=== PATIENT | male | born 1980 | race Caucasian/White ===

== ENCOUNTER 2021-12-17 15:38 | Emergency (ER) | payer BC ==
[~2021-12-17] VITALS: Ht 170.2 cm; Wt 75.0 kg
[2021-12-17 15:46] VITALS: BP 142/93
[2021-12-17] MEDS ORDERED: IBUPROFEN 600MG TABLET PO STA (15:48)
[2021-12-17] MEDS ORDERED: BACITRACIN ZINC OINT UDPKT TOP ONE (16:00)
[2021-12-17] MEDS ORDERED: LIDOCAINE HCL/PF 1% 10 MG/ML 5ML VIAL INFIL ONE (16:00)
[2021-12-17] MEDS ORDERED: LIDOCAINE HCL 1% 20ML VIAL (Pyxis) INJ INFIL NR (16:33)
== END 2021-12-18 00:15 | disposition home or self-care (01) ==
LOC: ER 15:38
DX: S01.511A Laceration without foreign body of lip, initial encounter (principal); X58.XXXA Exposure to other specified factors, initial encounter; Y93.89 Activity, other specified; Y92.89 Other specified places as the place of occurrence of the external cause; Y99.8 Other external cause status
CPT/HCPCS: 40650; 99284; J3490

== ENCOUNTER 2025-05-26 15:51 | Emergency (ER) | payer OTHER, BC ==
[~2025-05-26] VITALS: Ht 175.3 cm; Wt 86.0 kg
[2025-05-26 15:56] VITALS: TEMP 36.7; O2SAT 97
[2025-05-26] MEDS: KETOROLAC 15MG/ML VIAL IM ONE (17:30)
[2025-05-26] MEDS: LIDOCAINE 5% PATCH TOP SCH (18:04)
[2025-05-26] MEDS ORDERED: IBUP-2437 MT (18:54)
[2025-05-26] MEDS ORDERED: LIDO15CR TP (18:54)
[2025-05-26 19:09] VITALS: BP 139/95; PULSE 74; RESP 18; O2SAT 100
== END 2025-05-26 19:15 | disposition home or self-care (01) ==
LOC: ER 15:51
DX: M25.512 Pain in left shoulder (principal); M79.18 Myalgia, other site; V43.52XA Car driver injured in collision with other type car in traffic accident, initial encounter; Y93.89 Activity, other specified; Y92.89 Other specified places as the place of occurrence of the external cause; Y99.8 Other external cause status
CPT/HCPCS: 73030; 99283; J1885; Z7610